=== PATIENT | female | born 1975 | race Caucasian/White ===

== ENCOUNTER 2024-07-20 21:19 | Emergency (ER) | payer BC, SELFPAY ==
--- OUTSIDE RECORDS SUMMARY | 2024-07-20 21:23 | XMS REPORT | Continuity of Care Document ---
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 Name Role Phone Chelsey Attending Clinician Unavailabl e Chelsey Admitting Clinician Unavailabl e Payers Payer Name Policy Type Policy Number Effective Date Expirati on Date Source Plan of Care Planned Activity Planned Date Details Comments Source Diagnostic Test Pending 2020-04-15 00:00:00 COVID-19 RNA (SARS-CoV-2), QL, turner off-PCR, respiratory specimen [code = COVID-19 RNA (SARS-CoV-2), QL, turner off-PCR, respiratory specimen] [facility] Encounters Start Date/Time End Date/Time Encounter Type Admission Type Attending Clinicians Care Facility Care Department Encounter ID Source 2020-04-15 03:21:00 2020-04-15 03:21:00 Outpatient Alie raf [facility] [id number] [facility] 2020-04-15 00:00:00 2020-04-15 00:00:00 Lu Fields, PLUMBER: [place] [id number] , [facility] [id number] [facility] 2020-04-14 10:24:00 2020-04-14 10:24:00 Outpatient Alie raf [facility] [id number] [facility] Results Test Description Test Time Test Comments Results Result Co mments Source [facility] ProgramSARS coronavirus 2 RNA [Presence] in Respiratory specimen by MERLE with probe [id number] 00:00:00* Test Item Value Reference Range Interpretation Comme nts SARS coronavirus 2 RNA [Presence] in Respiratory specimen by MERLE with probe detection (test code = 67022-0) not detected not detected [facility]
--- NOTE | 2024-07-20 23:29 | ER ---
Nurse's Notes [facility] Name: Adam French Age: 48 yrs Sex: Female : 1975 Arrival Date: 07/20/2024 Time: 21:19 Bed 14 Private MD: Diagnosis: Pain in left foot Presentation: 07/20 22:02 Chief complaint: Patient states: left 2nd and 3rd toe pain increasing since this am kl slight swelling noted denies injury. Coronavirus screen: Vaccine status: Patient reports receiving the 2nd dose of the covid vaccine. Initial Sepsis Screen: Does the patient meet any 2 criteria? No. Patient's initial sepsis screen is negative. Does the patient have a suspected source of infection? No. Patient's initial sepsis screen is negative. Risk Assessment: Do you want to hurt yourself or someone else? Patient reports no desire to harm self or others. Onset of symptoms was July 20, 2024. 22:02 Method Of Arrival: Ambulatory kl 22:02 Acuity: KERA 4 kl Triage Assessment: 22:05 General: Appears uncomfortable, Behavior is calm, cooperative. Pain: Complains of pain kl in left second toe and left third toe Pain currently is 3 out of 10 on a pain scale. at worst was 8 out of 10 on a pain scale. Aggravated by increased activity, weight bearing. Historical: - Allergies: 22:04 PENICILLINS; kl - Home Meds: 22:04 None [Active]; kl - PMHx: 22:04 Hypertensive disorder; kl - PSHx: 22:04 c section; kl - Immunization history:: Adult Immunizations Last tetanus immunization: > 10 years ago Pneumococcal vaccine is not up to date, Flu vaccine is up to date. - Infectious Disease History:: Denies. - Social history:: Smoking status: Patient reports the use of cigarette tobacco products, smokes one pack cigarettes per day. - Family history:: not pertinent. Screenin/27 00:04 [facility] ED Fall Risk Assessment (Adult) History of falling in the last 3 months, jb4 including since admission No falls in past 3 months (0 pts) Confusion or Disorientation No (0 pts) Intoxicated or Sedated No (0 pts) Impaired Gait No (0 pts) Mobility Assist Device Used No (0 pt) Altered Elimination No (0 pt) Score/Fall Risk Level 0 - 2 = Low Risk Oriented to surroundings, Maintained a safe environment. Abuse screen: Denies threats or abuse. Nutritional screening: No deficits noted. Tuberculosis screening: No symptoms or risk factors identified. Assessment: 00:04 General: Appears in no apparent distress. comfortable, Behavior is calm, cooperative, jb4 appropriate for age. Pain: Complains of pain in left foot. Neuro: Level of Consciousness is awake, alert, obeys commands, Oriented to person, place, time, situation. Cardiovascular: Patient's skin is warm and dry. Respiratory: Airway is patent Respiratory effort is even, unlabored, Respiratory pattern is regular, symmetrical. GI: No signs and/or symptoms were reported involving the gastrointestinal system. : No signs and/or symptoms were reported regarding the genitourinary system. EENT: No signs and/or symptoms were reported regarding the EENT system. Derm: Skin is intact, Skin is pink, warm \T\ dry. Musculoskeletal: Circulation, motion, and sensation intact. Range of motion: intact in all extremities. Vital Signs: 07/20 22:02 BP 150 / 113; Pulse 95; Resp 20; Temp 97.8(TE); Pulse Ox 100% ; Weight 96.62 kg; Height kl 5 ft. 6 in. ; Pain 3/10; 22:02 Body Mass Index 34.38 (96.62 kg, 167.64 cm) kl 22:02 Pain Scale: Adult kl ED Course: : Patient arrived in ED. im 21:31 Bahman Connors MD is Attending Physician. rt 22:04 Triage completed. kl 22:54 Foot Left 3 View XRAY In Process Unspecified. EDMS 07/21 00:04 Patient has correct armband on for positive identification. Side rails up X 1. Provided jb4 Education on: discharge instructions . 00:04 No provider procedures requiring assistance completed. Patient did not have IV access jb4 during this emergency room visit. Administered Medications: No medications were administered Medication: 00:04 VIS not applicable for this client. jb4 Outcome: 07/20 23:28 Discharge ordered by . rt 07/21 00:04 Discharged to home ambulatory, jb4 Condition: stable Discharge instructions given to patient, Instructed on discharge instructions, follow up and referral plans. Demonstrated understanding of instructions, follow-up care, 00:11 Patient left the ED. jb4 Signatures: Dispatcher [employer] Lorrie Beckman, RN RN kl Bruce Singh RN RN jb4 Bahman Connors MD MD rt Karen Graf
--- NOTE | 2024-07-20 23:29 | EDPHYS ---
Physician Documentation [facility] Name: Adam French Age: 48 yrs Sex: Female : 1975 Arrival Date: 07/20/2024 Time: 21:19 Bed 14 Private MD: ED Physician Bahman Connors HPI: 07/21 01:47 This 48 yrs old Female presents to ER via Ambulatory with complaints of Toe Injury - rt left middle toe. 01:47 Patient presents to the ED with pain to the left foot at about the middle toe. Denies rt discrete injury. Denies other acute complaints at, symptoms are mild in severity, no other aggravating alleviating factors. Historical: - Allergies: 07/20 22:04 PENICILLINS; kl - Home Meds: 22:04 None [Active]; kl - PMHx: 22:04 Hypertensive disorder; kl - PSHx: 22:04 c section; kl - Immunization history:: Adult Immunizations Last tetanus immunization: > 10 years ago Pneumococcal vaccine is not up to date, Flu vaccine is up to date. - Infectious Disease History:: Denies. - Social history:: Smoking status: Patient reports the use of cigarette tobacco products, smokes one pack cigarettes per day. - Family history:: not pertinent. ROS: 07/21 01:47 Constitutional: Negative for fever, chills, and weight loss, Skin: Negative for injury, rt rash, and discoloration, Neuro: Negative for headache, weakness, numbness, tingling, and seizure, MS/extremity: Positive for pain, Negative for injury or acute deformity, Exam: 01:47 Constitutional: This is a well developed, well nourished patient who is awake, alert, rt and in no acute distress. Head/Face: Normocephalic, atraumatic. Neuro: Awake and alert, GCS 15, oriented to person, place, time, and situation. Cranial nerves II-XII grossly intact. Motor strength 5/5 in all extremities. Sensory grossly intact. Cerebellar exam normal. Normal gait. 01:47 Musculoskeletal/extremity: Mild tenderness to the left foot, no swelling, skin changes. Pulses, motor, sensation intact. Vital Signs: 07/20 22:02 BP 150 / 113; Pulse 95; Resp 20; Temp 97.8(TE); Pulse Ox 100% ; Weight 96.62 kg; Height kl 5 ft. 6 in. ; Pain 3/10; 22:02 Body Mass Index 34.38 (96.62 kg, 167.64 cm) kl 22:02 Pain Scale: Adult kl MDM: 23:22 Patient medically screened. rt 07/21 01:47 Differential Diagnosis Fracture, sprain. Data reviewed: vital signs, nurses notes, rt radiologic studies. Independent interpretation of the following test(s) in the Emergency Department X-Ray: My interpretation is No fracture seen on my interpretation of x-ray images. Response to treatment: the patient's symptoms have mildly improved after treatment. 07/20 22:11 Order name: Foot Left 3 View XRAY rt 07/20 23:27 Order name: Orthopedic shoe; Complete Time: 00:04 rt Administered Medications: No medications were administered Disposition Summary: 07/20/24 23:28 Discharge Ordered Notes: Location: Home rt Problem: new rt Symptoms: are unchanged rt Condition: Stable rt Diagnosis - Pain in left foot rt Followup: rt - With: Private Physician - When: 2 - 3 days - Reason: Discharge Instructions: - Discharge Summary Sheet rt - Foot Pain rt Forms: - Work release form rt - Medication Reconciliation Form rt - Antibiotic Education rt - Prescription Opioid Use rt - Patient Portal Instructions rt - Leadership Thank You Letter rt Signatures: Dispatcher [employer] Lorrie Beckman, Bahman Cunha RN, MD MD rt
[2024-07-21 01:01] VITALS: TEMP 97.8; O2SAT 100
--- NOTE | 2024-07-22 09:57 | RAD REPORT ---
EXAM DESCRIPTION: RAD - Foot Left 3 View - 07/20/2024 10:53 pm COMPARISON: None TECHNIQUE: 3 views of the left foot. FINDINGS: Normal mineralization. No acute fracture or dislocation. Joint spaces are maintained. IMPRESSION: No acute osseous findings. Electronically signed by: Shavon Baltazar MD 07/20/2024 11:10 PM CDT RP Z9 Due to temporary technical issues with the PACS/Fluency reporting system, reports are being signed by the in house radiologist without review as a courtesy to ensure prompt reporting. The interpreting r adiologist is fully responsible for the content of the report.
== END 2024-07-21 00:11 | disposition home or self-care (01) ==
LOC: ER 21:19
DX: M79.672 Pain in left foot (principal)
CPT/HCPCS: 99282